=== PATIENT | female | born 1985 ===

== ENCOUNTER 2021-10-25 19:00 | Inpatient (IN) | payer MEDICAID ==
[2021-10-25] MEDS ORDERED: ACETAMINOPHEN TAB 325 MG TAB PO PRN (19:31)
[2021-10-25] MEDS ORDERED: MAG HYDROX/AL HYDROX/SIMETH 30 ML CUP PO PRN (19:31)
[2021-10-25] MEDS ORDERED: MAGNESIUM HYDROXIDE 2,400 MG/10 ML CUP PO PRN (19:31)
[2021-10-25] MEDS ORDERED: HALOPERIDOL LACTATE 5 MG/ML 1 ML VIAL IM PRN (19:31)
[2021-10-25] MEDS ORDERED: haloperidoL 5 MG TAB PO PRN (19:34)
[2021-10-25] MEDS ORDERED: LORazepam 2 MG/ML INJ IM PRN (19:35)
--- NOTE | 2021-10-26 01:59 | P.CONS ---
History of Present Illness - Reason for Consult Consult date: 10/25/21 - History of Present Illness Patient is a 36-year-old female, transferred from [facility] who was seen in the mental health. The patient was paranoid and not forthcoming with information. She reports having a history of psychosis and that she is currently trying to get stabilized on her medications. She denied physical complaints at the time of interview. Denied chest discomfort, shortness of breath, fever, chills, cough, nausea, vomiting, abdominal pain, diarrhea. Reports using one pack of cigarettes daily. Denied substance use. Review of systems: Pertinent positives and negatives as discussed in HPI, a complete review of systems was performed and all other systems are negative. Physical examination: General: non toxic, no distress, appears at stated age, normal weight Derm: Refused examination Head: Refused examination Eyes: Refused examination ENT: Refused examination Neck: Refused examination Mouth: no lip lesion Cardiovascular: Refused examination Lungs: Refused examination Abdominal: Refused examination Ext: Refused examination Neuro: Refused examination Psych: Paranoid Assessment/plan GERD -Continue with Protonix Tobacco abuse -Nicotine patch when necessary -Advised on importance of cessation Psychosis -As per psychiatry Thank you for allowing us to participate in the care of this patient. We will follow peripherally. Do not hesitate to contact us with questions. Someone can be reached from the [facility] hospitalist group at all hours of the day at [phone]. Medications and Allergies Allergies Allergy/AdvReac Type Severity Reaction Status Date / Time No Known Allergies Allergy Verified 10/25/21 19:30 Physical Exam Vitals: Intake and Output 10/25/21 10/25/21 10/25/21 06:59 14:59 22:59 Other: Weight 78.6 kg
[2021-10-26] MEDS: PANTOPRAZOLE 40 MG TABLET PO SCH (08:43)
[2021-10-26] MEDS: haloperidoL 5 MG TAB PO SCH (08:43)
[2021-10-26] MEDS ORDERED: NICOTINE 14MG/24HR PATCH TRANSDERM SCH (09:00)
--- NOTE | 2021-10-26 12:00 | P.HP ---
Psychiatric H&P - . H&P Date: 10/26/21 History & Physical: IDENTIFYING DATA: She is a 36-year-old single female who has a history of a schizophrenia. She presented involuntarily on transfer from [facility]. HISTORY OF PRESENT ILLNESS: The accompanying petition read "paranoid delusions and tangential thoughts. Has been noncompliant with medications, has history of schizophrenia." I reviewed the medical record and interviewed the patient. She was anxious, paranoid and guarded. She appeared to have difficulty explaining the circumstances that led to her hospitalizations. Apparently she called emergency services from her apartment because she was feeling unwell. She gave a disjointed history about not being able to tolerate Abilify, taking Haldol and at some point stopping the Haldol. She appeared become more anxious and guarded as as I ask questions to clarify her history. She told the EPS nurse that she had been mixing alcohol with her psychotropic medication and has been more paranoid than normal. She felt that "people were following her" and that she had "walk to the hospital get help." During the interview she denied that she was drinking alcohol or drinking alcohol with her psychotropic medications. She perseverated about obtaining transportation so that she could return home from the hospital. 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 She is afraid that if she loses his job she would not be able to pay her rent and may lose her apartment. Sshe express feelings of depression but denied feeling hopeless or worthless. She was anxious but denied persistent uncontrolled anxiety. She was extremely guarded about her psychotic symptoms and would not talk about whether or not she was experiencing hallucinations, ideas reference, thought insertion or thought control. PAST PSYCHIATRIC HISTORY: She has a history of schizophrenia with onset in the early 20s. She has had approximately 5 psychiatric hospitalizations; the last was in February 2018. She is active with [facility]. She became increasingly anxious and paranoid when I inquired about history of suicide attempts or gestures. PAST MEDICAL HISTORY: Denied a history of major medical problems. ALLERGIES: Known drug ALLERGIES SUBSTANCE USE HISTORY: She is a history of alcohol use problems but alleges that she is spent abstinent "for a while." She was in one rehab program and was prescribed Antabuse. She denied use of drugs. FAMILY PSYCHIATRIC/SUBSTANCE USE HISTORY: She is unaware of a family history of mental illness LEGAL HISTORY: Denied SOCIAL HISTORY: Her parents when she was 10 years old. She is raised by her mother. She is estranged from her father and her older brother. She is single and had one child out of wedlock. She lost custody of the child was one year old. She lives alone in an apartment. She does not receive Social Security income. She receives financial support from her mother. MENTAL STATUS EXAM: She presented as a moderately obese 36-year-old female who is anxious, guarded and suspicious. She made intermittent eye contact and frequently scanned the room as though she were responding to internal stimuli. She is able to concentrate and attend to the interview. She had no prominent physical abnormalities. She is anxious facial expression. She was alert and oriented to person, place and time. She had psychomotor retardation but no abnormal involuntary movements. Her speech was spontaneous with a marked decrease in rate, volume and rhythm. Her affect was paranoid and anxious. She denied suicidal ideation and wishes. She denied homicidal ideation. She did not express feelings of hopelessness, helplessness or worthlessness. She ruminated about this hospitalization, transportation home and the status of her employment. She did not express clear ideas of reference or delusional thoughts. She did not express paranoid ideation. Her thinking was very concrete but her associations are goal-directed. At times she appeared to be blocking. She denied hallucinations but appeared to be responding to internal stimuli. Global impression of intellect is average. She is aware of illness and need for treatment. STRENGTHS: Stable housing, supportive family, good physical health, engagement with community mental health services WEAKNESSES: Chronic mental illness, questionable compliance with psychotropic medications, possible alcohol use problems IMPRESSION: She is a 36-year-old single female who has a history of schizophrenia. She presented to the psychiatric unit involuntarily on transfer from [facility] emergency room where she presented anxious, paranoid and delusional. She was obviously paranoid and was not forthcoming about her symptoms. I suspect she is having an exacerbation of her illness likely related to noncompliance with treatment. Alcohol might be compounding factor. She'll benefit from continued inpatient treatment with combination of psychopharmacology and multimodal therapy. PRINCIPLE DIAGNOSIS: Schizophrenia chronic multiple hospitalizations with acute exacerbation, rule out alcohol use disorder RECOMMENDATION: Admit voluntarily to the psychiatric unit. Safety precautions. Consult medicine for initial physical 7 medical history. ball worker completed initial psychosocial assessment coordinate discharge and aftercare services. Continue Haldol 10 mg daily, Haldol and/or Ativan when necessary IM for anxiety, agitation and increased psychosis. Obtain collateral information. Encourage participation in therapeutic groups and activities. Evaluate clinical status response to treatment daily basis. Allergies Allergy/AdvReac Type Severity Reaction Status Date / Time No Known Allergies Allergy Verified 10/25/21 19:30 Vital Signs Temp 98.9 F 10/26/21 06:56 Pulse 107 H 10/26/21 06:56 Resp BP 128/77 10/26/21 06:56 Pulse Ox 98 10/26/21 06:56 Intake & Output 10/25/21 10/26/21 10/26/21 18:59 06:59 18:59 Weight 78.6 kg 10/26/21 11:43
[2021-10-26 17:01] LABS: Chol/HDL Ratio 7.38 Ratio; LDL Cholesterol,Calculated 138.7 mg/dL (0.0-131.0)
[2021-10-26] MEDS: LORazepam 1 MG TAB PO PRN (23:53)
[2021-10-27 00:25] VITALS: RESP 14
[2021-10-27] MEDS ORDERED: diphenhydrAMINE 25 MG CAP PO STA ×2 (01:52→02:25)
[2021-10-27] MEDS: PANTOPRAZOLE 40 MG TABLET PO SCH (09:26)
[2021-10-27] MEDS: haloperidoL 5 MG TAB PO SCH (09:26)
--- NOTE | 2021-10-27 16:36 | P.PN ---
Progress Note - Text Progress Note Date: 10/27/21 Clinical Problems: Clinical Problems: Schizoaffective disorder bipolar type, cannabis use disorder, intellectual disability Interim history: I reviewed the medical record and interviewed the patient. The patient denied problems or concerns and requested discharge. She talked about wanting to be discharged with the male patient who was recently admitted. She was guarded and suspicious but denied such psychotic symptoms as hallucinations, ideas reference thought insertion etc. Show no behavioral problems or episodes of behavioral dyscontrol. She is attending therapeutic groups and activities. She slept only 2 hours last night. Mental status exam: She presented as a tall AND groomed female who was pleasant on approach. She made eye contact and appeared to attend to the interview. She had a blunted facial expression. She showed no abnormality of psychomotor activity. Her speech was spontaneous with decreased rate, rhythm and volume. She was guarded and suspicious and scanned the room during the interview. She denied suicidal ideation and wishes. She denied experiencing depressive cognitions. She did not express clear ideas reference or paranoid ideation. Her thinking was concrete and associations appeared goal directed. She denied hallucinations but appeared to be responding to internal stimuli. Assessment: She has no insight or understanding of her illness and need for treatment. She continues to have symptoms of psychosis with paranoia and possible auditory hallucinations. Plan: Continue inpatient treatment. Safety precautions. Continue Haldol 10 mg daily and Haldol 5 mg by mouth or IM agitation, aggression acute psychosis. Encourage continued participation in therapeutic groups and activities. Evaluate clinical status response to treatment daily basis.
[2021-10-27] MEDS: LORazepam 1 MG TAB PO PRN (23:55)
[2021-10-28] MEDS: PANTOPRAZOLE 40 MG TABLET PO SCH (08:48)
[2021-10-28] MEDS: haloperidoL 5 MG TAB PO SCH ×2 (08:48→20:05)
--- NOTE | 2021-10-28 13:29 | P.PN ---
Progress Note - Text Progress Note Date: 10/28/21 Interval History: Patient was seen wandering the hallways and was directable and agreeable to speak with card writer hand in the office. Currently, the patient is presenting as quite tearful during the psychiatric interview. The patient states that she is upset because she has been thinking about her daughter whom she lost custody of. She reports that her daughter's 3 years old. The patient states that she was brought to the hospital for paranoid delusions. She reports that these are well-controlled at this time. She does admit that she had some paranoid thoughts that her neighbor was present on the psychiatric unit. She is currently denying any suicidal or homicidal ideation, intention, and/or plan. She is not reporting any auditory or visual hallucinations. She denies any issues regarding her sleep or her appetite. The patient does report a significant history of substance use. She reports that she uses cocaine approximately twice per week. She was counseled at length that this may contribute to her psychotic symptoms and paranoia. Despite tachycardia, the patient does not endorse any chest pain, shortness of breath, or palpitations. As per team meeting discussion, the patient reportedly endorse significant paranoid delusions while attending group. She reportedly believed that the social science manager running group was involved in taking away the patient's daughter and was quite tearful and distraught. She expresses a desire not to interact with the social science manager. Mental Status Exam: General Appearance: Patient appears to be stated age is alert, directable, and cooperative. Behavior: Patient is calmly seated without any agitated behavior. Tearful throughout the interview. Speech: Patient's speech is fluent and nonpressured. Mood/Affect: Mood is "sad." Affect is tearful. Labile from happy to sad. Suicidality/Homicidality: Patient denies having any suicidal or homicidal ideation, intention,/or plan. Perceptions: Patient denies any visual hallucinations and denies any auditory hallucinations Though content/process: The patient does endorse paranoid delusional thought content and displayed this during group therapy. Thought process is goal oriented. Memory and concentration: AOX3, grossly intact for the purposes of this session Judgment and insight: Poor Vital Signs Temp 96.5 F L 10/27/21 00:23 Pulse 111 H 10/27/21 00:23 Resp 14 10/27/21 00:23 BP 140/87 10/27/21 00:23 Pulse Ox 98 10/26/21 06:56 FiO2 Assessment Schizophrenia Cocaine use disorder Plan: -Patient continues to meet criteria for inpatient psychiatric admission for symptom stabilization and safety. Patient has signed adult voluntary form and medication consent and was placed in patient's chart. -Medications: Increase Haldol to 10 mg by mouth every morning and 5 mg by mouth daily at bedtime for management of psychosis. -When necessary Ativan and Haldol for agitation/aggression. -SW on board for discharge planning. Encouraged the patient to participate in milieu.
[2021-10-28] MEDS: LORazepam 1 MG TAB PO PRN (22:28)
[2021-10-29 07:23] VITALS: BP 141/83; PULSE 89; TEMP 98.7
[2021-10-29] MEDS: PANTOPRAZOLE 40 MG TABLET PO SCH (08:44)
[2021-10-29] MEDS: haloperidoL 5 MG TAB PO SCH ×2 (08:44→20:40)
--- NOTE | 2021-10-29 14:06 | P.PN ---
Progress Note - Text Progress Note Date: 10/29/21 Interval History: Patient was seen wandering the hallways and was directable and agreeable to speak with automatic typewriter inspector in the office. Currently, the patient is not reporting any suicidal or homicidal ideation, intention, and/or plan. She is not reporting any auditory or visual hallucinations. She is denying any paranoia or other delusions. Patient has also had a significant decrease in her crying episodes. She maintains that she only cries when she is thinking about her daughter. The patient is requesting for discharge. She expresses no delusional thought content today and states that she had no delusional thoughts towards the Nirmala (SW who ran group yesterday) and instead only felt that the web content & social media manager reminded her of the web content & social media manager who worked on the case that led to her daughter being taken away. Mental Status Exam: General Appearance: Patient appears to be stated age is alert, directable, and cooperative. Behavior: Patient is calmly seated without any agitated behavior. Speech: Patient's speech is fluent and nonpressured. Mood/Affect: Mood is "feeling good" Affect is constricted. Suicidality/Homicidality: Patient denies having any suicidal or homicidal ideation, intention,/or plan. Perceptions: Patient denies any visual hallucinations and denies any auditory hallucinations Though content/process: The patient does endorse paranoid delusional thought content and displayed this during group therapy. Thought process is goal oriented. Memory and concentration: AOX3, grossly intact for the purposes of this session Judgment and insight: Poor Vital Signs Temp 98.7 F 10/29/21 07:22 Pulse 89 10/29/21 07:22 Resp 14 10/27/21 00:23 BP 141/83 10/29/21 07:22 Pulse Ox 99 10/29/21 07:22 FiO2 Assessment Schizophrenia Cocaine use disorder Plan: -Patient continues to meet criteria for inpatient psychiatric admission for symptom stabilization and safety. Patient has signed adult voluntary form and medication consent and was placed in patient's chart. -Medications: Continue Haldol 10 mg by mouth every morning and 5 mg by mouth daily at bedtime for management of psychosis. We discussed the possibility of transition to a long-acting injectable. Patient is currently denying need for this at this time. -When necessary Ativan and Haldol for agitation/aggression. -SW on board for discharge planning. Encouraged the patient to participate in milieu.
[2021-10-29] MEDS: LORazepam 1 MG TAB PO PRN (21:41)
[2021-10-30] MEDS: PANTOPRAZOLE 40 MG TABLET PO SCH (07:56)
[2021-10-30] MEDS: haloperidoL 5 MG TAB PO SCH (07:56)
--- NOTE | 2021-10-30 12:20 | P.DS ---
Providers Date of admission: 10/25/21 19:00 Expected date of discharge: 10/30/21 Attending physician: Corby Adair MD Consults: 10/25/21 19:31 Consult Physician Routine Consulting Provider: Juanita Quiroga Consult Reason/Comments: medical management Do you want consulting provider notified?: Yes Primary care physician: Stated None - Discharge Diagnosis(es) (1) Schizophrenia Current Visit: Yes Status: Acute (2) Cocaine use disorder Current Visit: Yes Status: Chronic Priority: Medium Hospital Course: Admission HPI: Initial psychiatric evaluation was completed by Dr Yuan on 10/26/2021 who wrote: "She is a 36-year-old single female who has a history of a schizophrenia. She presented involuntarily on transfer from [facility]. The accompanying petition read "paranoid delusions and tangential thoughts. Has been noncompliant with medications, has history of schizophrenia." I reviewed the medical record and interviewed the patient. She was anxious, paranoid and guarded. She appeared to have difficulty explaining the circumstances that led to her hospitalizations. Apparently she called emergency services from her apartment because she was feeling unwell. She gave a disjointed history about not being able to tolerate Abilify, taking Haldol and at some point stopping the Haldol. She appeared become more anxious and guarded as as I ask questions to clarify her history. She told the EPS nurse that she had been mixing alcohol with her psychotropic medication and has been more paranoid than normal. She felt that "people were following her" and that she had "walk to the hospital get help." During the interview she denied that she was drinking alcohol or drinking alcohol with her psychotropic medications. She perseverated about obtaining transportation so that she could return home from the hospital. 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 She is afraid that if she loses his job she would not be able to pay her rent and may lose her apartment. Sshe express feelings of depression but denied feeling hopeless or worthless. She was anxious but denied persistent uncontrolled anxiety. She was extremely guarded about her psychotic symptoms and would not talk about whether or not she was experiencing hallucinations, ideas reference, thought insertion or thought control. She has a history of schizophrenia with onset in the early 20s. She has had approximately 5 psychiatric hospitalizations; the last was in February 2018. She is active with [facility]. She became increasingly anxious and paranoid when I inquired about history of suicide attempts or gestures." Hospital course: Upon admission to the unit patient was initially noted to be anxious, guarded, and suspicious. She appeared to respond to internal stimuli. Patient was however directable and agreeable to commence treatment. Patient got along well with other patients on the unit and followed unit protocol. Patient was compliant with the medications and denied any side effects throughout hospital course. Patient was started on Haldol for management of acute psychosis and agitation. Patient spoke of her stressors and engaged in therapy both group and individual. Patient was also seen by medical team for history and physical e xam. At times the patient would cry uncontrollably and also expressed that people on the psychiatric unit or somehow involved in her losing custody of her child. As Haldol was gradually titrated, the patient displayed significant improvement in regards to the target symptoms of psychosis and mood lability. On the day of discharge, the patient does not report any suicidal or homicidal ideation, intention, and/or plan. She denies any access to firearms or other weapons. She reports no auditory or visual hallucinations. She denies any paranoia or other delusions. The patient remains future and goal oriented. The patient does have a significant history of substance abuse however was counseled on abstaining from all substances including alcohol, marijuana, cocaine, and other drugs. The patient was counseling from the importance of medication adherence appropriate outpatient follow-up. Prior to discharge, family meeting will be arranged by social sciences lecturer to answer any questions and ensure safety. Mental status exam: General Appearance: Patient appears to be stated age is alert, pleasant, and cooperative. Patient is in no acute distress and has fair hygiene and grooming Behavior: Patient is calmly seated without any agitated behavior. Speech: Patient's speech is fluent and nonpressured. Mood/Affect: Patient reports their mood is "doing good", affect is congruent and euthymic. Suicidality/Homicidality: Patient denies having any suicidal or homicidal ideation intent or plan. Perceptions: Patient denies any auditory or visual hallucinations. Though content/process: There is no evidence of any delusional thought content and thought process is linear and goal-directed. She is future oriented. Memory and concentration: AOX3, grossly intact for the purposes of this session. Can spell "WORLD" backwards correctly. Judgment and insight: Improved with guarded prognosis Vital Signs Temp 98.7 F 10/29/21 07:22 Pulse 89 10/29/21 07:22 Resp 14 10/27/21 00:23 BP 141/83 10/29/21 07:22 Pulse Ox 99 10/29/21 07:22 FiO2 Impression: Schizophrenia Cocaine use disorder Plan: -Continue with discharge today as patient has improved and stabilized psychiatrically and is not currently an imminent threat to herself and/or others. Patient will remain at chronically elevated risk for harm to self and/or others due to her severity of mental illness and her substance abuse. -Continue medications: Haldol 10 mg by mouth every morning and 5 mg by mouth daily at bedtime for psychosis. -Patient was counseled on the need for medication compliance and appropriate follow-up at mental health and also primary care for medical issues. Patient verbalized understanding and agreed. -Social work to arrange for and conduct family meeting to ensure safety upon discharge and answer any questions/concerns. Social work also to arrange for patients follow up appointments with [facility] for psychiatric care along with follow up with primary care provider. -Patient counseled on abstaining from recreational drugs and marijuana and alcohol. Was informed/educated on the adverse effects on their physical and mental health. Patient verbally agreed and understood. Patient was offered substance abuse treatment however declined at this time. -Patient was instructed to return to the hospital or seek immediate medical care if their psychiatric or medical symptoms do worsen or reoccur. -Psychoeducation and supportive therapy provided to patient. Risks and benefits of pharmacological treatment versus the risks and benefits of nontreatment weight and discussed. Informed consent discussion held. Common side effects of psychotropics discussed such as, but not limited to headache, GI disturbance, sexual dysfunction, movement disorders, sedation, and orthostatic hypotension. Life threatening and blackbox warnings of prescribed medications also discussed. Potential risks of operating a vehicle or heavy machinery discussed with patient at length. Advised on importance of compliance and a reliable and responsible manner. Patient advised to review FDA consumer labeling of all medications prior to taking. Patient verbalized understanding of potential risks, and agrees with current treatment plan. Patient advised to medically contact physician/emergency personnel if any acute changes in condition occur. Allergies Allergy/AdvReac Type Severity Reaction Status Date / Time No Known Allergies Allergy Verified 05/20/22 19:[address] Glu mg/dL 137 10/26/21 10:02 Hemoglobin A1c 6.4 % (0.0-6.0) H 10/26/21 10:02 Triglycerides 145.00 mg/dL (0.00-149.00) 10/26/21 10:02 Cholesterol 194.00 mg/dL (0.00-200.00) 10/26/21 10:02 LDL Cholesterol, Calc 138.7 mg/dL (0.0-131.0) H 10/26/21 10:02 VLDL Cholesterol, Calc 29.00 mg/dL (5.00-40.00) 10/26/21 10:02 HDL Cholesterol 26.30 mg/dL (40.00-60.00) L 10/26/21 10:02 Cholesterol/HDL Ratio 7.38 Ratio 10/26/21 10:02 Patient Condition at Discharge: Stable Plan - Discharge Summary New Discharge Prescriptions: New haloperidoL [Haldol] 5 mg PO HS 30 Days tab haloperidoL [Haldol] 10 mg PO DAILY 30 Days tab Discharge Medication List haloperidoL [Haldol] 5 mg PO HS 30 Days tab 10/30/21 [Rx] haloperidoL [Haldol] 10 mg PO DAILY 30 Days tab 10/30/21 [Rx] Follow up Appointment(s)/Referral(s): JACQUELINE De Leon [Other] - 11/22/21 9:30 am [facility] [Other] - 1 Week Patient Instructions/Handouts: Schizophrenia (DC) Activity/Diet/Wound Care/Special Instructions: Activity and diet as tolerated. Avoid the use of street drugs and alcohol. Take all medications as prescribed. When you are in need of refills on your medications please contact your medical provider and/or outpatient psychiatrist to have this done. Please go to scheduled outpatient appointment for aftercare treatment. If symptoms return or become worse, call the crisis line at and/or go to the nearest emergency room for evaluation Discharge Disposition: HOME SELF-CARE
== END 2021-10-30 12:46 | disposition home or self-care (01) | DRG 885 ==
LOC: 3MHU 19:00
PROVIDERS: ADMIT Psychiatry & Neurology Psychiatry; ATTEND Psychiatry & Neurology Psychiatry
DX: F25.0 Schizoaffective disorder, bipolar type (principal); F17.210 Nicotine dependence, cigarettes, uncomplicated; F12.10 Cannabis abuse, uncomplicated; F14.10 Cocaine abuse, uncomplicated; F79 Unspecified intellectual disabilities; K21.9 Gastro-esophageal reflux disease without esophagitis; Z91.14 Patient's other noncompliance with medication regimen; Z91.19 Patient's noncompliance with other medical treatment and regimen; Z91.51 Personal history of suicidal behavior; Z60.2 Problems related to living alone; Z53.20 Procedure and treatment not carried out because of patient's decision for unspecified reasons; Z28.310 Unvaccinated for COVID-19
CPT/HCPCS: 80061; 83036